=== PATIENT | male | born 1945 ===

== ENCOUNTER → 2020-08-26 10:05 | Outpatient (CLI) | payer MEDICARE, OTHER, SELFPAY ==
[2020-08-26 19:14] LABS: Add Manual Diff / Slide Review NO; Basophils Absolute Auto 0 /uL (0-100); Basophils Percent Auto 0.9 % (0-2); Eosinophils Absolute Auto 0 /uL (0-450); Hematocrit 43.3 % (41-53); Hemoglobin 14.6 g/dL (13.5-17.5); Lymphocytes Absolute Auto 1600 /uL (1100-4500); Lymphocytes Percent Auto 40.1 % (25-40); Mean Corpuscular HGB Conc 33.8 % (30-36); Mean Corpuscular Hemoglobin 32.5 PG (26-34); Mean Corpuscular Volume 96.3 fL (80-100); Monocytes Absolute Auto 500 /uL (0-900); Monocytes Percent Auto 13.3 % (3-14); Neutrophils Absolute Auto 1800 /uL (1500-7000); Neutrophils Percent Auto 44.7 % (50-75); Platelet Count 160 X10^3/uL (150-400); Red Blood Cell Count 4.49 X10^6/uL (4.5-5.9); Red Cell Distribution Width 13.6 % (11.6-14.8); White Blood Cell Count 4.1 X10^3/uL (4.5-11.0)
[2020-08-26 19:46] LABS: Alanine Aminotransferase 38 IU/L (<50); Albumin 4.3 g/dL (3.5-5.0); Albumin Globulin Ratio 1.5 (1.0-2.8); Alkaline Phosphatase 69 U/L (38-126); Aspartate Aminotransferase 36 IU/L (17-59); BUN Creatinine Ratio 19.6 (6-22); Bilirubin Total 0.7 mg/dL (0.2-1.3); Blood Urea Nitrogen 19 mg/dL (9-20); Calcium 9.4 mg/dL (8.4-10.2); Carbon Dioxide 26 mmol/L (22-32); Chloride 105 mmol/L (98-107); Cholesterol 235 mg/dL (140-199); Estimated Glomerular Filt Rate > 60.0 mL/min (>60); Globulin 2.9 g/dL (1.7-4.1); Glucose 100 mg/dL (80-110); HDL Cholesterol 51 mg/dL (40-60); HEMOLYSIS < 15 (0-50); LDL Cholesterol Calculated 167 mg/dL (<100); Potassium 4.4 mmol/L (3.4-5.1); Sodium 139 mmol/L (137-145); Total Protein 7.2 g/dL (6.3-8.2); Triglycerides 86 mg/dL (35-150); Uric Acid 8.9 mg/dL (3.5-8.5)
== END ==
PROVIDERS: PCP Family Medicine; Visit Provider Family Medicine
DX: E66.9 Obesity, unspecified (principal); M1A.9XX0 Chronic gout, unspecified, without tophus (tophi); E78.5 Hyperlipidemia, unspecified
CPT/HCPCS: 80053; 80061; 84550; 85025

== ENCOUNTER → 2021-01-04 09:41 | Outpatient (CLI) | payer MEDICARE, OTHER, SELFPAY ==
[2021-01-04 20:21] LABS: Alanine Aminotransferase 33 IU/L (<50); Albumin 4.4 g/dL (3.5-5.0); Albumin Globulin Ratio 1.6 (1.0-2.8); Alkaline Phosphatase 62 U/L (38-126); Aspartate Aminotransferase 33 IU/L (17-59); BUN Creatinine Ratio 16.5 (6-22); Bilirubin Total 0.6 mg/dL (0.2-1.3); Blood Urea Nitrogen 17 mg/dL (9-20); Calcium 9.4 mg/dL (8.4-10.2); Carbon Dioxide 27 mmol/L (22-32); Chloride 102 mmol/L (98-107); Cholesterol 172 mg/dL (140-199); Estimated Glomerular Filt Rate > 60.0 mL/min (>60); Globulin 2.8 g/dL (1.7-4.1); Glucose 102 mg/dL (80-110); HDL Cholesterol 51 mg/dL (40-60); HEMOLYSIS < 15 (0-50); LDL Cholesterol Calculated 104 mg/dL (<100); Potassium 4.2 mmol/L (3.4-5.1); Sodium 139 mmol/L (137-145); Total Protein 7.2 g/dL (6.3-8.2); Triglycerides 85 mg/dL (35-150); Uric Acid 5.5 mg/dL (3.5-8.5)
[2021-01-04 20:26] LABS: Hemoglobin A1C% w Est Avg Glu 5.7 % (4.0-6.0)
[2021-01-04 20:30] LABS: High Sensitivity CRP - Cardiac 3.1 mg/L (1.0-3.0)
[2021-01-06 08:10] LABS: Apolipoprotein B 96 mg/dL (<90)
[2021-01-08 10:16] LABS: Lipoprotein (a) 57.4 nmol/L (<75.0)
== END ==
PROVIDERS: PCP Family Medicine
DX: E78.5 Hyperlipidemia, unspecified (principal); R73.09 Other abnormal glucose; M10.9 Gout, unspecified; M10.00 Idiopathic gout, unspecified site; Z78.9 Other specified health status
CPT/HCPCS: 80053; 80061; 82172; 83036; 83695; 84550; 86140

== ENCOUNTER → 2021-07-23 09:31 | Outpatient (CLI) | payer MEDICARE, SELFPAY ==
[2021-07-23 19:08] LABS: Alanine Aminotransferase 33 IU/L (<50); Albumin 4.6 g/dL (3.5-5.0); Albumin Globulin Ratio 1.6 (1.0-2.8); Alkaline Phosphatase 63 U/L (38-126); Aspartate Aminotransferase 36 IU/L (17-59); Bilirubin Total 0.9 mg/dL (0.2-1.3); Blood Urea Nitrogen 18 mg/dL (9-20); Calcium 9.1 mg/dL (8.4-10.2); Carbon Dioxide 27 mmol/L (22-32); Chloride 105 mmol/L (98-107); Cholesterol 120 mg/dL (140-199); Estimated Glomerular Filt Rate > 60 mL/min (>60); Globulin 2.9 g/dL (1.7-4.1); Glucose 103 mg/dL (80-110); HDL Cholesterol 55 mg/dL (40-60); HEMOLYSIS < 15 (0-50); LDL Cholesterol Calculated 49 mg/dL (<100); Potassium 4.2 mmol/L (3.4-5.1); Sodium 138 mmol/L (137-145); Total Protein 7.5 g/dL (6.3-8.2); Triglycerides 79 mg/dL (35-150)
[2021-07-23 19:11] LABS: High Sensitivity CRP - Cardiac 1.1 mg/L (1.0-3.0)
[2021-07-23 21:15] LABS: Hemoglobin A1C% w Est Avg Glu 5.9 % (4.0-6.0)
[2021-07-25 08:13] LABS: Apolipoprotein B 56 mg/dL (<90)
== END ==
PROVIDERS: PCP Family Medicine; Visit Provider Family Medicine
DX: R73.09 Other abnormal glucose (principal); E78.5 Hyperlipidemia, unspecified; Z78.9 Other specified health status
CPT/HCPCS: 80053; 80061; 82172; 83036; 86140

== ENCOUNTER → 2023-07-07 12:10 | Outpatient (CLI) | payer MEDICARE, SELFPAY ==
[2023-07-07 19:29] LABS: Uric Acid 5.3 mg/dL (3.5-8.5)
[2023-07-07 19:30] LABS: Hemoglobin A1C% w Est Avg Glu 5.9 % (4.0-6.0)
== END ==
PROVIDERS: PCP Physician Assistant; Visit Provider Family Medicine
DX: R73.09 Other abnormal glucose (principal); M10.9 Gout, unspecified
CPT/HCPCS: 83036; 84550

== ENCOUNTER → 2024-05-13 14:00 | Outpatient (CLI) | payer MEDICARE, SELFPAY ==
[2024-05-13 19:22] LABS: Reticulocyte Count, Percent 0.6 % (0.9-2.6)
[2024-05-13 20:14] LABS: Vitamin B12 311 pg/mL (239-931)
[2024-05-13 20:38] LABS: Folate 7.9 ng/mL (2.76-20.0)
== END ==
PROVIDERS: PCP Physician Assistant; Visit Provider Family Medicine
DX: D75.89 Other specified diseases of blood and blood-forming organs (principal)
CPT/HCPCS: 82607; 82746; 83090; 83921; 84155; 84165; 85045